=== PATIENT | female | born 1995 ===

== ENCOUNTER 2016-11-02 10:30 | Outpatient (CLI) | payer OTHER ==
[~2016-11-02] VITALS: Ht 161.3 cm; Wt 62.0 kg
[2016-11-02 10:46] VITALS: BP 108/68
[2016-11-02 11:53] VITALS: BP 119/74
--- NOTE | 2016-11-02 17:58 | HPE ---
DATE OF ADMISSION: 11/02/2016 A 20-year-old 1, para 0, last menstrual period (LMP) 01/22/2016, estimated date of confinement (EDC) 10/28/2016 at 40 and 4 weeks of gestation who comes with a history of spotting of one episode and occasional contractions. She is booked for induction of labor in two days. Her risk factors is she has anemia. She is a single active-duty soldier. She has had right hip pain because of fracture of her pelvis. She has had a consultation which says that she is adequate for vaginal delivery. LABORATORY DATA: A+, HIV negative, hepatitis negative, RPR negative, rubella immune. Varicella immune. Urine is negative. Gonorrhea and Chlamydia are negative. One-hour glucose was 77. GBS is negative. Pap was normal. On examination, no distress. Symphysis fundus height is 40, vertex, OT, thick, closed, high, posterior. No vaginal os. No vaginal bleeding. Category 1 strip. Blood pressure is 108/68, respirations are 18, pulse is 104, and temperature is 98.6. Urine is 1.020, pH 5, trace of leukocytes. Our plan of management is to discharge with precautions, keep her appointment for induction of labor. The rest of her examination is unremarkable. She is normocephalic, atraumatic. Neck: Full range of motion. Pupils are equal and reactive to light. Distal pulses are symmetric. No evidence of deep vein thrombosis (DVT), pulmonary embolism (PE), or superficial phlebitis. Chest is clear bilaterally to the bases. No wheezes or rhonchi. No costovertebral angle (CVA) tenderness. Symphysis fundus height is appropriate. Four quadrant bowel sounds are noted. She has no rashes, lesions or pruritus. No arthralgia or myalgia. No complaints of cough, wheeze, shortness of breath, or dyspnea on exertion. No chest pain. Not bleeding. Neurologically complete. No incontinence, urgency, or frequency. No nausea, vomiting, diarrhea, or constipation. No diabetic issues. No gynecologic (BEAUTY ADVISOR) issues. PAST MEDICAL HISTORY: Unremarkable. PAST SURGICAL HISTORY: Unremarkable. FAMILY HISTORY: Noncontributory. SOCIAL HISTORY: She does not smoke, drink, or abuse drugs. There is no domestic violence and she has a single active-duty soldier. Our plan of management is to discharge with precautions, keep her appointment for induction of labor. She was given advice regarding returning if she has premature rupture of membranes, bleeding, or decreased movements. She expressed understanding of the procedure.
== END 2016-11-02 12:15 | disposition home or self-care (01) ==
LOC: M LDO 10:30
PROVIDERS: ATTEND Obstetrics & Gynecology
DX: O26.853 Spotting complicating pregnancy, third trimester (principal); Z3A.40 40 weeks gestation of pregnancy; M25.551 Pain in right hip; O26.893 Other specified pregnancy related conditions, third trimester

== ENCOUNTER 2016-11-03 11:16 | Inpatient (IN) | payer OTHER ==
[~2016-11-03] VITALS: Ht 160 cm; Wt 67.0 kg
[2016-11-03] VITALS (29 sets, daily range): BP systolic 103–145; BP diastolic 55–74
[2016-11-03] MEDS ORDERED: LACTATED RINGER'S 1000 ML IV STA (11:45)
[2016-11-03 12:59] LABS: MEAN CORPUSCULAR HEMOGLOBIN 20.5 pg (27.0-33.0); MEAN CORPUSCULAR HGB CONC 29.9 g/dl (32.0-36.5); MEAN CORPUSCULAR VOLUME 68.3 fl (80.0-96.0); RED CELL DISTRIBUTION WIDTH 17.3 % (11.5-14.5); WHITE BLOOD COUNT 16.5 K/mm3 (4.0-10.0)
[2016-11-03] MEDS: LR 1,000 ML IV SCH ×2 (14:03→19:45)
[2016-11-03] MEDS ORDERED: NALBUPHINE HCL 10 MG/ML AMP (J2300) IM ONE (14:15)
[2016-11-03] MEDS ORDERED: NALBUPHINE HCL 10 MG/ML AMP (J2300) IV ONE (14:15)
[2016-11-03] MEDS ORDERED: FENTANYL 2MCG/ML ROPIVACAINE 0.2% IN 0.9% NACL 200ML IVBAG As Ordered ONE (14:17)
[2016-11-03] MEDS ORDERED: NALOXONE INJ 0.4 MG/1 ML VIAL (J2310) IV PRN (15:00)
[2016-11-03] MEDS ORDERED: LACTATED RINGER'S 1000 ML IV PRN (15:00)
[2016-11-03] MEDS ORDERED: EPIDURAL/PCA KEYS XX PRN (15:00)
[2016-11-03] MEDS ORDERED: EPIDURAL COMMENT XX SCH (15:00)
[2016-11-03] MEDS ORDERED: diphenhydrAMINE INJ 50MG/ML VIAL (J1200) IV PRN (15:00)
[2016-11-03] MEDS ORDERED: ONDANSETRON 4MG/2ML VIAL (J2405) IV PRN (15:00)
[2016-11-03] MEDS ORDERED: FENTANYL/ROPIVACAINE/NACL BAG 200 ML EPIDURAL SCH (15:00)
[2016-11-03] MEDS ORDERED: ePHEDrine SULFATE 25 MG/5 ML(5MG/ML) SYRINGE IV PRN (15:00)
[2016-11-03] MEDS ORDERED: REFRIGERATOR IV KEYS XX PRN (15:00)
[2016-11-03] MEDS ORDERED: OXYTOCIN 30 UNITS IN 0.9% NaCl 500ML IV BAG (J2590) As Ordered ONE (20:21)
[2016-11-03] MEDS ORDERED: ACETAMINOPHEN TAB 650MG DOSE (2X325MG) As Ordered ONE (20:39)
[2016-11-03] MEDS ORDERED: ACETAMINOPHEN TAB 650MG DOSE (2X325MG) PO ONE (20:45)
[2016-11-03] MEDS ORDERED: UNASYN 1.5 GM VIAL As Ordered ONE ×2 (21:36→21:37)
--- NOTE | 2016-11-03 21:44 | IPNPDOC ---
Text Note Date of Service The patient was seen on 11/03/16. NOTE NST Cat 1, mod rosalinda pos accels T noted in the last hour to be 101.5, given tylenol 650 mg 30 min ago, recheck just now 100.4 Viatls stable, no hypotension or tachycardia, GE RN record reviewed. Cx C/C/+2/OA Chorioamnionitis. Will alert NICU staff and Tx with Unasyn now due to need for immediate use and this med is present on the floor. Start pushing as soon as Unasyn is complete. Sessions VS,Marvin, I+O VSMarvin, I+O Laboratory Tests 11/03/16 12:04 Red Blood Count 4.50, Mean Corpuscular Volume 68.3 L, Mean Corpuscular Hemoglobin 20.5 L, Mean Corpuscular Hemoglobin Concent 29.9 L, Red Cell Distribution Width 17.3 H Vital Signs Date Time Temp Pulse Resp B/P (MAP) Pulse Ox O2 Delivery O2 Flow Rate FiO2 11/03/16 15:36 99 11/03/16 15:31 18 106/57 (73) 98 11/03/16 11:27 99.9 Room Air SESSIONS,DEVIN Ramirez MD Nov 03, 2016 21:44
[2016-11-03] MEDS ORDERED: OXYTOCIN DRIP 30 UNITS in APPROPRIATE DILUENT 1 EA IV SCH ×4 (23:25)
[2016-11-03] MEDS ORDERED: ACETAMINOPHEN TAB 650MG DOSE (2X325MG) PO PRN (23:30)
[2016-11-03] MEDS ORDERED: DIBUCAINE 1% OINTMENT 30GM TOP PRN (23:30)
[2016-11-03] MEDS ORDERED: RHOGAM 300 MCG (1500 IU) INJ (J2790) IM SCH (23:30)
[2016-11-03] MEDS ORDERED: MEASLES,MUMPS,RUBELLA VACCINE INJ (MMR-II) (90707) SC SCH (23:30)
[2016-11-03] MEDS ORDERED: METOCLOPRAMIDE INJ 10MG/2ML VIAL (J2765) IV PRN (23:30)
[2016-11-03] MEDS ORDERED: IBUPROFEN 800 MG TAB PO PRN (23:30)
--- NOTE | 2016-11-03 23:34 | DNPDOC ---
[facility] Delivery Note Delivery Note DATE OF DELIVERY: [id number] at 2257 PREDELIVERY DIAGNOSIS: 40 6/7 weeks' gestation and labor. POST DELIVERY DIAGNOSIS: Delivered. PROCEDURE: Spontaneous vaginal delivery AIRCRAFT TECHNICIAN: Dr. Hinojosa ANESTHESIA: epidural ESTIMATED BLOOD LOSS: 200 mL. FINDINGS: 7 pound 4 ounce female , Score 9/9 DELIVERY SUMMARY: Pushed very well after the entire dose Unasyn in. <1 hr, called to room. No signif delay of the vtx or ant/post shoulders. To abd, vigorous. Cord C/C by FOB. Placenta intact with slight traction, fundal massage. Pit going and fundus firm. Button hole lac on left labia reapproximated with 3-0 vicryl. 1st degr lac repaired in standard fasion with 3 -0 vicryl. Good cosmesis/hemostasis both sites. Sessions MD HINOJOSA,DEVIN Ramirez MD Nov 03, 2016 23:34
[2016-11-04 01:47] VITALS: BP 119/69
[2016-11-04 06:30] VITALS: BP 112/71
--- NOTE | 2016-11-04 07:24 | IPNPDOC ---
Text Note Date of Service The patient was seen on 11/04/16. NOTE PPD1 prog note States feeling well, no complaints. No heavy VB. Pain controlled. Voiding, ambulatory. Bonding well (baby in NICU) and breast feeding well. VSSAF CTAB RRR Ut at U-2, firm Ext no CCE a/p: Doing well. d/c to bonding likely tomorrow. Spending most of her time in the NICU with infant, appropriate. Sessions Marvin BARAKAT, I+O VSMarvin I+O Laboratory Tests 11/03/16 12:04 Red Blood Count 4.50, Mean Corpuscular Volume 68.3 L, Mean Corpuscular Hemoglobin 20.5 L, Mean Corpuscular Hemoglobin Concent 29.9 L, Red Cell Distribution Width 17.3 H Vital Signs Date Time Temp Pulse Resp B/P (MAP) Pulse Ox O2 Delivery O2 Flow Rate FiO2 11/04/16 06:30 99.8 95 18 112/71 (85) 99 Room Air I&O- Last 24 Hours up to 6 AM 11/04/16 05:59 Output Total 1700 ml Balance -1700 ml SESSIONS,DEVIN Ramirez MD Nov 04, 2016 07:24
[2016-11-04] MEDS: DOCUSATE SODIUM 100 MG CAP PO SCH ×2 (08:47→21:29)
[2016-11-04] MEDS: PRENATAL VITAMINS CHEWABLE TABLET PO SCH (08:47)
[2016-11-04] MEDS ORDERED: SLF 3 ML SYR IV PRN (12:00)
[2016-11-04] MEDS: SLF 3 ML SYR IV SCH ×2 (15:54→21:29)
[2016-11-04 18:30] VITALS: BP 118/73
[2016-11-05] MEDS: SLF 3 ML SYR IV SCH (06:00)
[2016-11-05 06:28] VITALS: BP 120/69
[2016-11-05] MEDS: DOCUSATE SODIUM 100 MG CAP PO SCH (08:05)
[2016-11-05] MEDS: PRENATAL VITAMINS CHEWABLE TABLET PO SCH (08:05)
[2016-11-05] MEDS ORDERED: COLA100C5 PO (09:57)
[2016-11-05] MEDS ORDERED: ACET50TA PO (09:58)
[2016-11-05] MEDS ORDERED: PRENTAB9 PO (09:58)
[2016-11-05] MEDS ORDERED: IBUP-1114 PO (10:13)
[2016-11-05] MEDS ORDERED: DIBU1OIN TOP (10:13)
== END 2016-11-05 13:30 | disposition home or self-care (01) | DRG 775 ==
LOC: M LDO 11:16 → M LDI 11:43 → M OBS 11-04 01:45
PROVIDERS: ADMIT Obstetrics & Gynecology; ATTEND Obstetrics & Gynecology
PROC: 10E0XZZ Delivery of Products of Conception, External Approach (ICD-10-PCS; principal; 2016-11-03)
PROC: 0HQ9XZZ Repair Perineum Skin, External Approach (ICD-10-PCS; 2016-11-03)
DX: O48.0 Post-term pregnancy (principal); Z37.0 Single live birth; Z3A.40 40 weeks gestation of pregnancy; O70.0 First degree perineal laceration during delivery